=== PATIENT | female | born 1980 | race Caucasian/White ===

== ENCOUNTER 2020-05-27 16:14 | Inpatient (IN) | payer SELFPAY ==
[~2020-05-27] VITALS: Ht 162.6 cm; Wt 69.4 kg
[2020-05-27] MEDS ORDERED: IV NORMAL SALINE 1,000ML 1,000 ML IV ONE (16:45)
[2020-05-27] MEDS ORDERED: ACETAMINOPHEN 500 MG TABLET PO ONE (16:45)
[2020-05-27 17:13] LABS: BASO % 0 % (0-3); EOS % 0 % (0-3); HEMATOCRIT 35.2 % (36.0-47.0); LYMPH # 0.5 x10^3/uL (1.0-4.8); LYMPH % 4 % (24-48); MEAN CORPUSCULAR HEMOGLOBIN 31 pg (25-35); MEAN CORPUSCULAR HGB CONC 34 g/dL (31-37); MEAN CORPUSCULAR VOLUME 90 fL (79-100); MONO % 8 % (0-9); NEUT # 11.4 x10^3uL (1.8-7.7); NEUT % 88 % (31-73); PLATELET COUNT 228 x10^3/uL (140-400); RED BLOOD COUNT 3.91 x10^6/uL (3.50-5.40); WHITE BLOOD COUNT 12.9 x10^3/uL (4.0-11.0)
[2020-05-27] MEDS ORDERED: MORPHINE SULFATE 2 MG/ML DISP.SYRIN. IV ONE (17:15)
[2020-05-27] MEDS ORDERED: KETOROLAC 30 MG/ML VIAL. IVP ONE (17:15)
[2020-05-27] MEDS ORDERED: ONDANSETRON PF 4 MG/2 ML VIAL. IVP ONE (17:15)
--- NOTE | 2020-05-27 17:19 | PHYS DOC ---
General Adult EDM: Chief Complaint: FLANK PAIN HPI: HPI: 39-year-old female presents with left flank pain. The patient's pain started yesterday. It started out of the clear blue. It has intensified today and is now severe. He is also felt feverish. She does have a fever on arrival. Patient has had kidney stones in the past. She is also had urinary tract infections. She denies any falls or trauma. She has no other complaints. Review of Systems: Review of Systems: Constitutional: Fever Eyes: Denies change in visual acuity HENT: Denies nasal congestion or sore throat Respiratory: Denies cough or shortness of breath Cardiovascular: Denies chest pain or edema GI: Denies abdominal pain, nausea, vomiting, bloody stools or diarrhea : Dysuria Musculoskeletal: Left flank pain Integument: Denies rash Neurologic: Denies headache, focal weakness or sensory changes Endocrine: Denies polyuria or polydipsia Lymphatic: Denies swollen glands Psychiatric: Denies depression or anxiety Heart Score: Risk Factors: Risk Factors: DM, Current or recent (<one month) smoker, HTN, HLP, family history of CAD, obesity. Risk Scores: Score 0 - 3: 2.5% MACE over next 6 weeks - Discharge Home Score 4 - 6: 20.3% MACE over next 6 weeks - Admit for Clinical Observation Score 7 - 10: 72.7% MACE over next 6 weeks - Early Invasive Strategies Current Medications: Current Meds: Current Medications Medications (Trade) Dose Ordered Sig/[facility] Start Time Stop Time Status Last Admin Dose Admin Acetaminophen (Tylenol) 1,000 mg 1X ONCE 05/27/20 16:45 05/27/20 16:46 DC 05/27/20 16:58 1,000 MG Sodium Chloride 1,000 ml @ 1,000 mls/hr 1X ONCE 05/27/20 16:45 05/27/20 17:44 05/27/20 16:57 1,000 MLS/HR Allergies: Allergies: Allergies Coded Allergies Type Severity Reaction Last Updated Verified No Known Drug Allergies 05/27/20 No Physical Exam: PE: Constitutional: Well developed, well nourished, mild acute distress, non-toxic appearance. [] HENT: Normocephalic, atraumatic, bilateral external ears normal, oropharynx moist, no oral exudates, nose normal. [] Eyes: PERRLA, EOMI, conjunctiva normal, no discharge. [] Neck: Normal range of motion, no tenderness, supple, no stridor. [] Cardiovascular: Heart rate regular rhythm, no murmur [] Lungs & Thorax: Bilateral breath sounds clear to auscultation [] Abdomen: Bowel sounds normal, soft, no tenderness, no masses, no pulsatile masses. [] Skin: Warm, dry, no erythema, no rash. [] Back: No tenderness, left CVA tenderness. [] Extremities: No tenderness, no cyanosis, no clubbing, ROM intact, no edema. [] Neurologic: Alert and oriented X 3, normal motor function, normal sensory function, no focal deficits noted. [] Psychologic: Affect normal, judgement normal, mood normal. [] EKG: EKG: [] Radiology/Procedures: Radiology/Procedures: [] Impressions: RENAL COMPLETE BILATERAL History: Flank pain. Fever. Reason: concern for kidney stone / Spl. Instructions: / History: Comparison: None. Procedure: Transabdominal ultrasound images are obtained of the kidneys and bladder. Findings: Right kidney: measures 13.8 x 5.4 x 4.9 cm. Normal cortical echotexture. Corticomedullary differentiation is preserved. No hydronephrosis. Left kidney: measures 12.9 x 5.6 x 6.8 cm. Normal cortical echotexture. Corticomedullary differentiation is preserved. No hydronephrosis. Urinary bladder: No urinary bladder wall thickening. Bilateral ureteral jets were identified. The IVC is normal caliber. The visualized abdominal aorta is normal caliber. IMPRESSION: 1. Unremarkable renal ultrasound. Electronically signed by: Juan J Hough DO (05/27/2020 5:45 PM) [facility] DICTATED AND SIGNED BY: JUAN J HOUGH DO DATE: 05/27/20 174 CC: MANDO VILLAFUERTE DO; PCP,NO ~ Course & Med Decision Making: Course & Med Decision Making Pertinent Labs and Imaging studies reviewed. (See chart for details) Our CT machine is down and unable to be used at this time. We did a retroperitoneal ultrasound of the kidneys and there was no hydronephrosis or obvious stone. The patient does have a urinary tract infection. Given her fever, this appears to be pyelonephritis. I will give her 1 g of Rocephin IV in the emergency room. I spoke with Dr. Cordova and he has accepted the patient for admission. I spoke with the patient and she is in agreement with admission. [] Dragon Disclaimer: Dragankush Disclaimer: This electronic medical record was generated, in whole or in part, using a voice recognition dictation system. Departure Departure: Impression: Primary Impression: Pyelonephritis Disposition: ADMITTED INPATIENT Admitting Physician: Rosetta Cordova Condition: STABLE Referrals: PCP,NO (PCP) Justification of Admission: Justification of Admission: Justification of Admission Dx: Comment: Comments: Pyelonephritis MANDO VILLAFUERTE DO May 27, 2020 17:19
[2020-05-27 17:28] LABS: BACTERIA,URINE MOD /HPF (0-FEW); BILIRUBIN,URINE NEG (NEG); CLARITY,URINE CLOUDY; COLOR,URINE AMBER; GLUCOSE,URINE 100 mg/dL (NEG); NITRITE,URINE POS (NEG); RBC,URINE OCC /HPF (0-2); SQUAMOUS EPITHELIAL CELL,UR FEW /LPF; WBC,URINE >40 /HPF (0-4)
[2020-05-27 17:31] LABS: CALCIUM 8.8 mg/dL (8.5-10.1); CREATININE 1.3 mg/dL (0.6-1.0); GFR 45.1; POTASSIUM 3.4 mmol/L (3.5-5.1)
[2020-05-27 17:36] LABS: ALBUMIN 3.3 g/dL (3.4-5.0); ALBUMIN/GLOBULIN RATIO 0.8 (1.0-1.7); TOTAL BILIRUBIN 0.3 mg/dL (0.2-1.0); TOTAL PROTEIN 7.3 g/dL (6.4-8.2)
--- NOTE | 2020-05-27 17:47 | RAD ---
RENAL COMPLETE BILATERAL History: Flank pain. Fever. Reason: concern for kidney stone / Spl. Instructions: / History: Comparison: None. Procedure: Transabdominal ultrasound images are obtained of the kidneys and bladder. Findings: Right kidney: measures 13.8 x 5.4 x 4.9 cm. Normal cortical echotexture. Corticomedullary differentiation is preserved. No hydronephrosis. Left kidney: measures 12.9 x 5.6 x 6.8 cm. Normal cortical echotexture. Corticomedullary differentiation is preserved. No hydronephrosis. Urinary bladder: No urinary bladder wall thickening. Bilateral ureteral jets were identified. The IVC is normal caliber. The visualized abdominal aorta is normal caliber. IMPRESSION: 1. Unremarkable renal ultrasound. Electronically signed by: Juan J Read DO (05/27/2020 5:45 PM) [facility]
[2020-05-27] MEDS ORDERED: IV NORMAL SALINE 50ML 50 ML ONE (18:19)
[2020-05-27] MEDS ORDERED: cefTRIAXone SODIUM 1 GM VIAL ONE (18:20)
[2020-05-27 19:53] LABS: % BANDS 1 % (0-9); % LYMPHS 4 % (24-48); % MONOS 5 % (0-10); % SEGS 90 % (35-66); PLT ESTIMATE ADEQUATE (ADEQUATE)
--- NOTE | 2020-05-27 20:45 | NUR ---
The patient, VIJAY AMARAL, 39 y/o, F admitted by ARINA BERNARD MD, was given written information regarding hospital policies, unit procedures and contact persons. Pt accompanied onto the unit by EMS personnel via gurney. Pt able to transfer from gurney to bed independently. Vital signs assessed and stable. Pt reports that she has been having "Pain in her kidneys" and burning upon urination x1 day. Pt denies other complaints. Pt requested heating pad for comfort. Valuables were checked and left in room with pt. Oriented pt to room and call light. Call light within reach.
[2020-05-27 20:58] VITALS: BP 102/66
[2020-05-27] MEDS: ACETAMINOPHEN 325 MG TABLET PO PRN (23:33)
[2020-05-27 23:35] VITALS: BP 100/68
[2020-05-28] MEDS ORDERED: ONDANSETRON PF 4 MG/2 ML VIAL. IVP PRN (02:30)
[2020-05-28] MEDS: MORPHINE SULFATE 4 MG/ML DISP.SYRIN. IV PRN ×5 (03:11→21:33)
[2020-05-28 05:20] VITALS: BP 104/66
[2020-05-28] MEDS: ACETAMINOPHEN 325 MG TABLET PO PRN ×2 (06:38→16:15)
[2020-05-28 07:18] LABS: BASO % 0 % (0-3); EOS # 0.1 x10^3/uL (0.0-0.7); EOS % 1 % (0-3); HEMATOCRIT 34.7 % (36.0-47.0); HEMOGLOBIN 11.7 g/dL (12.0-15.5); LYMPH # 1.1 x10^3/uL (1.0-4.8); LYMPH % 10 % (24-48); MEAN CORPUSCULAR HEMOGLOBIN 31 pg (25-35); MEAN CORPUSCULAR HGB CONC 34 g/dL (31-37); MEAN CORPUSCULAR VOLUME 91 fL (79-100); MONO # 0.8 x10^3/uL (0.0-1.1); MONO % 7 % (0-9); NEUT # 9.3 x10^3uL (1.8-7.7); NEUT % 83 % (31-73); PLATELET COUNT 201 x10^3/uL (140-400); RED BLOOD COUNT 3.81 x10^6/uL (3.50-5.40); RED CELL DISTRIBUTION WIDTH 13.1 % (11.5-14.5); WHITE BLOOD COUNT 11.2 x10^3/uL (4.0-11.0)
[2020-05-28 07:26] LABS: ALBUMIN 2.8 g/dL (3.4-5.0); ALBUMIN/GLOBULIN RATIO 0.7 (1.0-1.7); CALCIUM 8.4 mg/dL (8.5-10.1); GFR 61.1; POTASSIUM 3.4 mmol/L (3.5-5.1); TOTAL BILIRUBIN 0.3 mg/dL (0.2-1.0); TOTAL PROTEIN 6.6 g/dL (6.4-8.2)
[2020-05-28 11:08] VITALS: BP 98/66
--- NOTE | 2020-05-28 12:28 | NUR ---
NURSING NOTE PT RESTING IN BED THIS AM UPON ASSESSMENT AND MEDICATION ADMINISTRATION. PT IS A&O. PT C/O PAIN 7-06/08. PRN MORPHINE GIVEN. PT RESTING COMFORTABLY. AMANDA ESPOSITO.
[2020-05-28] MEDS ORDERED: MORPHINE SULFATE 4 MG/ML DISP.SYRIN. IV ONE (15:00)
[2020-05-28 15:38] VITALS: BP 115/72
--- NOTE | 2020-05-28 15:56 | RAD ---
Axial CT images of the abdomen and pelvis with coronal and sagittal reformats were performed without contrast per renal colic protocol. Exposure: One or more of the following individualized dose reduction techniques were utilized for this examination: 1. Automated exposure control 2. Adjustment of the mA and/or kV according to patient size 3. Use of iterative reconstruction technique Indication: Reason: Severe flank pain with previous history of renal stones / Spl. Instructions: / History: Comparison: None. Findings: No renal, ureteral, or bladder stones are identified. No hydronephrosis, perinephric fat stranding, or hydroureter are seen bilaterally. The appendix is visualized and is unremarkable in appearance. The remainder of the non contrasted abdomen and pelvis is normal in appearance, although evaluation is limited on an unenhanced exam. Impression: 1. No evidence of urolithiasis or urinary obstruction. Electronically signed by: Eduardo Benitez MD (05/28/2020 3:53 PM) [id number]
[2020-05-28] MEDS: POTASSIUM CL 40MEQ IN 0.9%NACL 1,000 ML IV SCH (16:15)
--- NOTE | 2020-05-28 18:25 | PN ---
DATE: 05/28/2020 SUBJECTIVE: The patient is resting, slightly propped up in bed, continued to complain of severe pain in her left flank area. It transpired that CT scan at the [facility] was not working yesterday. She has never had any CT scan done, was admitted with acute pyelonephritis, treated with IV antibiotic. However, as she has a history of stones before and the CT scan in the hospital is working, we will arrange for CT scan of the abdomen and pelvis without contrast. Meanwhile, continue with IV antibiotic, IV pain medication and IV fluid. PHYSICAL EXAMINATION: GENERAL: When I examined her this afternoon, she looked well and was clearly in no apparent distress. No pallor, jaundice, cyanosis or thyromegaly. No jugular venous distention. No limb edema. VITAL SIGNS: Her heart rate was 85, blood pressure was 98/66, temperature was 98, respiratory rate was 18. In fact, this morning, her temperature was up to 100.9, respiratory rate was 18 and oxygen saturation was 98% on room air. HEENT: Showed normocephalic, atraumatic. NECK: Supple. HEART: Showed normal first and second heart sounds. No gallop, rub or murmur. CHEST: Clear to auscultation. No crepitation or rhonchi. ABDOMEN: Distended, soft, nontender. Tenderness mostly in the left flank area. No guarding or rigidity. No organomegaly. All hernial orifices intact. Bowel sounds normal. NEUROLOGIC: She is grossly intact. LABORATORY DATA: Her lab work this morning showed a white cell count is 11,200, hemoglobin 11.7, hematocrit 34, MCV 91, and platelet count 201,000. Her chemistry showed a serum sodium 136, potassium 3.4, chloride 101, bicarbonate 26, anion gap of 9, BUN 10, creatinine 1, estimated GFR was 61 mL per minute. Her glucose 143, calcium was 8.4. Total bilirubin, AST, ALT, alkaline phosphatase were normal. Total protein was 6.6, albumin 2.8. ASSESSMENT: Acute pyelonephritis. PLAN: My plan is to arrange for her to have a CT scan of the abdomen and pelvis without contrast. Continue with IV antibiotic. Continue with pain management. I will add also IV fluid in the form of normal saline with potassium as she has hypokalemia. Once obviously if there is any evidence of any stone with obstruction, we will add Flomax and we might have to consider transferring her to a hospital where there is a Urology service. ARINA BERNARD MD DR: JORGE ALBERTO/francisco javier JOB#: [id number] / [id number]
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
[2020-05-28 19:19] VITALS: BP 104/67
[2020-05-28] MEDS: LACTOBACILLUS RHAMNOSUS GG 1 CAPSULE. PO SCH (20:10)
[2020-05-28 22:25] VITALS: BP 96/62
[2020-05-29] MEDS: ACETAMINOPHEN 325 MG TABLET PO PRN (01:37)
[2020-05-29] MEDS: MORPHINE SULFATE 4 MG/ML DISP.SYRIN. IV PRN ×2 (01:38→05:57)
[2020-05-29] MEDS: POTASSIUM CL 40MEQ IN 0.9%NACL 1,000 ML IV SCH ×2 (03:25→10:12)
[2020-05-29 05:31] VITALS: BP 101/65
[2020-05-29 06:14] LABS: HEMATOCRIT 31.7 % (36.0-47.0); HEMOGLOBIN 10.5 g/dL (12.0-15.5); RED BLOOD COUNT 3.46 x10^6/uL (3.50-5.40); WHITE BLOOD COUNT 9.5 x10^3/uL (4.0-11.0)
[2020-05-29 06:23] LABS: CALCIUM 8.1 mg/dL (8.5-10.1); CREATININE 0.9 mg/dL (0.6-1.0); MAGNESIUM 1.8 mg/dL (1.8-2.4); POTASSIUM 3.8 mmol/L (3.5-5.1)
[2020-05-29] MEDS: LACTOBACILLUS RHAMNOSUS GG 1 CAPSULE. PO SCH (08:35)
[2020-05-29] MEDS: oxyCODONE IR 5 MG TABLET PO PRN ×2 (10:12→14:38)
[2020-05-29 11:29] VITALS: BP 108/71
[2020-05-29] MEDS ORDERED: CEFD300C PO (11:49)
[2020-05-29] MEDS ORDERED: OXYC5TAB88 PO (11:49)
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
--- NOTE | 2020-05-29 15:01 | NUR ---
NURSING NOTE DISCHARGE PT DISCHARGED HOME VIA AMBULATION ACCOMPANIED BY SELF. PT GIVEN WRITTEN AND VERBAL DISCHARGE INSTRUCTIONS. SCRIPTS FOR PAIN AND ANTIBIOTICS GIVEN TO PT. NO COMPLICATIONS. AMANDA ESPOSITO.
== END 2020-05-29 15:02 | disposition home or self-care (01) | DRG 690 ==
LOC: ER 16:14 → 1 SOUTH 18:15
PROVIDERS: ADMIT Internal Medicine; ATTEND Internal Medicine
DX: N10 Acute pyelonephritis (principal); E87.6 Hypokalemia; N17.9 Acute kidney failure, unspecified; F17.210 Nicotine dependence, cigarettes, uncomplicated; Z83.3 Family history of diabetes mellitus; Z87.01 Personal history of pneumonia (recurrent); Z87.442 Personal history of urinary calculi
CPT/HCPCS: 36415; 74176; 76770; 80048; 80053; 81001; 83735; 85007; 85025; 85027; 87077; 87086; 87186; 96361; 96365; 96375; 99406; J0696; J1885; J2270; J2405; 99285-25; J7030

== ENCOUNTER 2020-08-31 11:02 | Emergency (ER) | payer SELFPAY ==
[~2020-08-31] VITALS: Ht 160 cm; Wt 67.0 kg
[~2020-08-31 11:02] MED LIST: CEFD300C PO; OXYC5TAB88 PO
[2020-08-31 11:05] VITALS: BP 145/97
[2020-08-31] MEDS ORDERED: HYDR-3165 PO (11:48)
[2020-08-31] MEDS ORDERED: CLIN300C8 PO (11:48)
--- NOTE | 2020-08-31 11:49 | PHYS DOC ---
Past History Past Medical History: Kidney Stones, UTI Past Surgical History: Other Additional Past Surgical Histo: LEFT LEG Alcohol Use: None General Adult EDM: Chief Complaint: DENTAL PROBLEM HPI: HPI: 39-year-old female presents with left lower dental pain and facial swelling. Patient states that she started of significant pain followed by swelling yesterday. She has a known bad tooth in this area. She does not currently see a dentist. She believes that she still has [place] Medicaid. She has not been able to switch over to [place] yet. The pain is moderate to severe in intensity. She denies fever or chills. She has had no drainage from the area as far she knows. Review of Systems: Review of Systems: Constitutional: Denies fever or chills Eyes: Denies change in visual acuity HENT: dental pain Respiratory: Denies cough or shortness of breath Cardiovascular: Denies chest pain or edema GI: Denies abdominal pain, nausea, vomiting, bloody stools or diarrhea : Denies dysuria Musculoskeletal: Denies back pain or joint pain Integument: Denies rash Neurologic: Denies headache, focal weakness or sensory changes Endocrine: Denies polyuria or polydipsia Lymphatic: Denies swollen glands Psychiatric: Denies depression or anxiety Allergies: Allergies: Allergies Coded Allergies Type Severity Reaction Last Updated Verified No Known Drug Allergies 08/31/20 No Physical Exam: PE: Constitutional: Well developed, well nourished, no acute distress, non-toxic appearance. [] HENT: Normocephalic, atraumatic, bilateral external ears normal, broken left lower molar with surrounding erythematous gums and facial swelling. [] Eyes: PERRLA, EOMI, conjunctiva normal, no discharge. [] Neck: Normal range of motion, no tenderness, supple, no stridor. [] Cardiovascular:Heart rate regular rhythm, no murmur [] Lungs & Thorax: Bilateral breath sounds clear to auscultation [] Abdomen: Bowel sounds normal, soft, no tenderness, no masses, no pulsatile masses. [] Skin: Warm, dry, no erythema, no rash. [] Back: No tenderness, no CVA tenderness. [] Extremities: No tenderness, no cyanosis, no clubbing, ROM intact, no edema. [] Neurologic: Alert and oriented X 3, normal motor function, normal sensory function, no focal deficits noted. [] Psychologic: Affect normal, judgement normal, mood normal. [] Current Patient Data: Vital Signs: Vital Signs Date Time Temp Pulse Resp B/P (MAP) Pulse Ox O2 Delivery O2 Flow Rate FiO2 08/31/20 11:05 98.2 102 18 145/97 (113) 99 EKG: EKG: [] Radiology/Procedures: Radiology/Procedures: [] Heart Score: Risk Factors: Risk Factors: DM, Current or recent (<one month) smoker, HTN, HLP, family history of CAD, obesity. Risk Scores: Score 0 - 3: 2.5% MACE over next 6 weeks - Discharge Home Score 4 - 6: 20.3% MACE over next 6 weeks - Admit for Clinical Observation Score 7 - 10: 72.7% MACE over next 6 weeks - Early Invasive Strategies Course & Med Decision Making: Course & Med Decision Making Pertinent Labs and Imaging studies reviewed. (See chart for details) The patient does appear to have an infected tooth. I did not palpate a fluctuant abscess. I will place her on clindamycin and [place]. I have advised her strongly to find a dentist or public clinic to take care of this tooth this week. She states verbal understanding. She is stable for discharge at this time. [] Tata Disclaimer: Tata Disclaimer: This electronic medical record was generated, in whole or in part, using a voice recognition dictation system. Departure Departure: Impression: Primary Impression: Infected dental carries Disposition: 01 DC HOME SELF CARE/HOMELESS Condition: STABLE Referrals: PCP,NO (PCP) Patient Instructions: Dental Abscess Scripts Clindamycin Hcl (CLINDAMYCIN HCL) 300 Mg Capsule 1 CAP PO BID for dental infection, #14 CAP Prov: MANDO VILLAFUERTE DO 08/31/20 Hydrocodone Bit/Acetaminophen (NORCO 5-325 TABLET) 1 Each Tablet 1 TAB PO PRN Q6HRS PRN for PAIN, #14 TAB 0 Refills Prov: MANDO VILLAFUERTE DO 08/31/20 MANDO VILLAFUERTE DO Aug 31, 2020 11:49
== END 2020-08-31 11:53 | disposition home or self-care (01) ==
LOC: ER 11:02
DX: K02.9 Dental caries, unspecified (principal); K04.7 Periapical abscess without sinus; Z87.442 Personal history of urinary calculi; Z87.440 Personal history of urinary (tract) infections
CPT/HCPCS: 99283

== ENCOUNTER 2021-03-09 19:40 | Emergency (ER) | payer SELFPAY ==
[~2021-03-09] VITALS: Ht 160 cm; Wt 67.0 kg
[~2021-03-09 19:40] MED LIST changes: +CLIN300C9 PO; +HYDR-3165 PO
[2021-03-09 19:43] VITALS: BP 171/99
[2021-03-09] MEDS ORDERED: DEXAMETHASONE 4 MG TABLET PO ONE (20:00)
[2021-03-09] MEDS ORDERED: AMOXICILLIN/K CLAV 875/125MG TABLET. PO ONE (20:00)
[2021-03-09] MEDS ORDERED: HYDR-2759 PO (20:26)
[2021-03-09] MEDS ORDERED: CHLO15MO2 PO (20:26)
[2021-03-09] MEDS ORDERED: AMOX1TAB61 PO (20:26)
--- NOTE | 2021-03-09 20:26 | PHYS DOC ---
Past History Past Medical History: Kidney Stones, UTI Past Surgical History: , Other Additional Past Surgical Histo: LEFT LEG Alcohol Use: None General Adult EDM: Chief Complaint: DENTAL PROBLEM HPI: HPI: Patient is a [age] year old [sex] who presents with [] Review of Systems: Review of Systems: Constitutional: Denies fever or chills Eyes: Denies change in visual acuity HENT: Denies nasal congestion or sore throat Respiratory: Denies cough or shortness of breath Cardiovascular: Denies chest pain or edema GI: Denies abdominal pain, nausea, vomiting, bloody stools or diarrhea : Denies dysuria Musculoskeletal: Denies back pain or joint pain Integument: Denies rash Neurologic: Denies headache, focal weakness or sensory changes Endocrine: Denies polyuria or polydipsia Lymphatic: Denies swollen glands Psychiatric: Denies depression or anxiety Current Medications: Current Meds: Current Medications Medications (Trade) Dose Ordered Sig/Coy Start Time Stop Time Status Last Admin Dose Admin Amoxicillin/ Clavulanate Potassium (Augmentin 875/ 125mg) 1 tab 1X ONCE 03/09/21 20:00 03/09/21 20:09 DC 03/09/21 20:18 1 TAB Dexamethasone (Decadron) 10 mg 1X ONCE 03/09/21 20:00 03/09/21 20:09 DC 03/09/21 20:18 10 MG Allergies: Allergies: Allergies Coded Allergies Type Severity Reaction Last Updated Verified No Known Drug Allergies 08/31/20 No Physical Exam: PE: Constitutional: Well developed, well nourished, no acute distress, non-toxic appearance. [] HENT: Normocephalic, atraumatic, bilateral external ears normal, oropharynx moist, no oral exudates, nose normal. [] Eyes: PERRLA, EOMI, conjunctiva normal, no discharge. [] Neck: Normal range of motion, no tenderness, supple, no stridor. [] Cardiovascular:Heart rate regular rhythm, no murmur [] Lungs & Thorax: Bilateral breath sounds clear to auscultation [] Abdomen: Bowel sounds normal, soft, no tenderness, no masses, no pulsatile masses. [] Skin: Warm, dry, no erythema, no rash. [] Back: No tenderness, no CVA tenderness. [] Extremities: No tenderness, no cyanosis, no clubbing, ROM intact, no edema. [] Neurologic: Alert and oriented X 3, normal motor function, normal sensory function, no focal deficits noted. [] Psychologic: Affect normal, judgement normal, mood normal. [] Current Patient Data: Vital Signs: Vital Signs Date Time Temp Pulse Resp B/P (MAP) Pulse Ox O2 Delivery O2 Flow Rate FiO2 03/09/21 19:43 98.7 80 18 171/99 (123) 100 Room Air EKG: EKG: [] Radiology/Procedures: Radiology/Procedures: [] Heart Score: Risk Factors: Risk Factors: DM, Current or recent (<one month) smoker, HTN, HLP, family history of CAD, obesity. Risk Scores: Score 0 - 3: 2.5% MACE over next 6 weeks - Discharge Home Score 4 - 6: 20.3% MACE over next 6 weeks - Admit for Clinical Observation Score 7 - 10: 72.7% MACE over next 6 weeks - Early Invasive Strategies Course & Med Decision Making: Course & Med Decision Making Pertinent Labs and Imaging studies reviewed. (See chart for details) [] Dragon Disclaimer: Dragon Disclaimer: This electronic medical record was generated, in whole or in part, using a voice recognition dictation system. Departure Departure: Impression: Primary Impression: Dental caries Additional Impression: Toothache Disposition: HOME / SELF CARE / HOMELESS Condition: STABLE Referrals: PCPBENJAMÍN (PCP) Patient Instructions: Dental Caries, Toothache-Brief Additional Instructions: May take mgsh-ene-ieiyriy ibuprofen or Aleve in addition to prescribed me dication Scripts Amoxicillin/Potassium Clav (AUGMENTIN 875-125 TABLET) 1 Each Tablet 1 TAB PO BID for Dental infection for 7 Days, #14 TAB 0 Refills Prov: FARIBA HAGEN DO 03/09/21 Chlorhexidine Gluconate (PERIDEX) 15 Ml Mouthwash 15 ML PO BID for Dental infection, #473 ML 0 Refills Prov: FARIBA HAGEN DO 03/09/21 Hydrocodone/Acetaminophen (Hydrocodone-Acetamin 5-325 mg) 1 Each Tablet 0.5 EACH PO Q4-6HRS PRN for PAIN, #10 TAB Prov: FARIBA HAGEN DO 03/09/21 FARIBA HAGEN DO March 09, 2021 20:26
[2021-03-09] MEDS ORDERED: IBUPROFEN 600 MG TABLET. PO ONE (20:30)
== END 2021-03-09 20:30 | disposition home or self-care (01) ==
LOC: ER 19:40
DX: K02.9 Dental caries, unspecified (principal); Z87.442 Personal history of urinary calculi; Z87.440 Personal history of urinary (tract) infections; Z98.890 Other specified postprocedural states
CPT/HCPCS: 99284; J8540